=== PATIENT | male | born 1930 | race Caucasian/White ===

== ENCOUNTER 2017-05-23 22:03 | Inpatient (IN) ==
[2017-05-24] MEDS ORDERED: cefTRIAXone 1,000 MG in SODIUM CHLORIDE 0.9% 100 ML IV STA (00:10)
[2017-05-24] MEDS ORDERED: ALBUTEROL/IPRATROPIUM 3 ML NEB RESP TX STA (00:10)
[2017-05-24 00:53] LABS: Basophils % 0.6 % (0.0-0.8); Eosinophils # 0.1 10*3/uL (0.0-0.87); Eosinophils % 1.7 % (0.00-10.9); Hematocrit 39.5 VOL% (42.0-52.0); Hemoglobin 12.9 GM/DL (14.0-18.0); Immature Granulocytes % 0.6 %; Immature Granulocytes Absolute 0.04 #; Lymphocytes # 0.8 10*3/uL (1.4-4.0); Lymphocytes % 11.7 % (21.2-54.2); Mean Corpuscular HGB Conc 32.7 GM/DL (32-36); Mean Corpuscular Hemoglobin 28 PG (27-34); Mean Corpuscular Volume 85.3 FL (87-102); Mean Platelet Volume 12.3 FL (9.6-12.0); Monocytes # 0.9 10*3/uL (0.11-0.8); Monocytes % 13.4 % (1.7-12.7); Neutrophils # 4.8 10*3/uL (1.4-7.4); Platelet Count 99 T/CUMM (130-400); Red Blood Count 4.63 MC/CUMM (3.8-5.5); Red Cell Distribution Width 14.7 % (9.3-17.3); White Blood Count 6.6 T/CUMM (4-12)
[2017-05-24 01:01] LABS: Lactic Acid 1.1 MMOL/L (0.4-2.0)
[2017-05-24] MEDS ORDERED: OSELTAMIVIR 75 MG CAPSULE PO ONE (01:02)
[2017-05-24 01:11] LABS: Albumin 3.6 G/DL (3.4-5.0); Bilirubin,Total 0.8 MG/DL (0.2-1.0); Calcium 8.3 MG/DL (8.5-10.1); Osmolality,Calculated 273.8 MOS/KG (273-304); Potassium 4.2 MMOL/L (3.5-5.1); Total Protein 6.2 G/DL (6.4-8.3)
[2017-05-24] MEDS ORDERED: cefTRIAXone 1,000 MG VIAL ONE (01:28)
[2017-05-24] MEDS ORDERED: OSELTAMIVIR 75 MG CAPSULE ONE (01:29)
[2017-05-24] MEDS ORDERED: SODIUM CHLORIDE 0.9% 100 ML IV ONE (01:29)
[2017-05-24 01:57] LABS: Apearance,Urine CLEAR (Clear); Bilirubin,Urine Negative (Negative); Blood, Urine Negative (Negative); Glucose,Urine (UA) Negative (Negative); Ketones,Urine Negative (Negative); Mucus,Urine Occasional /LPF (Occasional); Nitrite,Urine Negative (Negative); Protein,Urine Negative; RBC,Urine 1 /HPF (0-4); Urine Color Yellow (Yellow); Urine Specific Gravity 1.013 (1.001-1.035); Urine Urobilinogen < 2.0 EU/DL (0.2-1.0); WBC,Urine 1 /HPF (0-6)
[2017-05-24] MEDS ORDERED: cefTRIAXone 1,000 MG in SYRINGE 1 EACH IV SCH (03:31)
[2017-05-24] MEDS ORDERED: ZALEPLON 5 MG CAPSULE PO PRN (03:31)
[2017-05-24] MEDS ORDERED: ALBUTEROL/IPRATROPIUM 3 ML NEB RESP TX PRN (03:31)
[2017-05-24] MEDS ORDERED: ONDANSETRON 4 MG/2 ML VIAL IV PRN (03:31)
[2017-05-24] MEDS ORDERED: MELOXICAM 7.5 MG TABLET PO PRN (03:31)
[2017-05-24] MEDS ORDERED: ACETAMINOPHEN 325 MG TABLET PO PRN (03:31)
[2017-05-24] MEDS: methylPREDNISolone SOD SUC 40 MG/1 ML VIAL IV SCH ×3 (04:20→20:59)
[2017-05-24] MEDS: AZITHROMYCIN INJ 500 MG in SODIUM CHLORIDE 0.9% 250 ML IV SCH (04:21)
[2017-05-24] MEDS: SODIUM CHLORIDE 0.9% 1,000 ML IV SCH (04:21)
[2017-05-24 06:04] LABS: Basophils % 0.4 % (0.0-0.8); Eosinophils # 0.1 10*3/uL (0.0-0.87); Eosinophils % 1.6 % (0.00-10.9); Hematocrit 37.7 VOL% (42.0-52.0); Hemoglobin 12.5 GM/DL (14.0-18.0); Immature Granulocytes % 1.1 %; Immature Granulocytes Absolute 0.06 #; Lymphocytes # 0.8 10*3/uL (1.4-4.0); Lymphocytes % 14.4 % (21.2-54.2); Mean Corpuscular HGB Conc 33.2 GM/DL (32-36); Mean Corpuscular Hemoglobin 28 PG (27-34); Mean Corpuscular Volume 84.7 FL (87-102); Mean Platelet Volume 12.4 FL (9.6-12.0); Monocytes # 0.8 10*3/uL (0.11-0.8); Monocytes % 13.8 % (1.7-12.7); Neutrophils # 3.8 10*3/uL (1.4-7.4); Neutrophils % 68.7 % (38.7-73.9); Platelet Count 92 T/CUMM (130-400); Red Blood Count 4.45 MC/CUMM (3.8-5.5); Red Cell Distribution Width 14.9 % (9.3-17.3); White Blood Count 5.6 T/CUMM (4-12)
[2017-05-24 06:29] LABS: Giant Platelets Few; Platelet Estimate Adequate
[2017-05-24 06:30] LABS: Hypochromasia 1+
[2017-05-24 06:33] LABS: Albumin 3.4 G/DL (3.4-5.0); Calcium 8.4 MG/DL (8.5-10.1); Magnesium 2.1 MG/DL (1.8-2.4); Osmolality,Calculated 280.4 MOS/KG (273-304); Potassium 4.3 MMOL/L (3.5-5.1); Total Protein 5.4 G/DL (6.4-8.3)
[2017-05-24] MEDS: TAMSULOSIN 0.4 MG CAPSULE PO SCH ×2 (09:07→21:00)
[2017-05-24] MEDS: OSELTAMIVIR 6 MG/ML 60 ML/BOTTLE PO SCH ×2 (09:07→21:01)
[2017-05-24] MEDS: MULTIVITAMIN (CENTRUM) TABLET PO SCH (09:07)
[2017-05-24] MEDS: PANTOPRAZOLE 40 MG TABLET PO SCH (09:07)
[2017-05-24] MEDS: GLUCOSAMINE 500 MG TABLET PO SCH (09:07)
[2017-05-24] MEDS: DOCUSATE SODIUM 100 MG CAPSULE PO SCH ×2 (09:07→21:00)
[2017-05-24] MEDS ORDERED: NON-FORMULARY MEDICATION (Saccharomyces Boulardii [Probiotic] 250 MG) PO SCH (19:00)
[2017-05-25] MEDS: cefTRIAXone 1,000 MG in SYRINGE 1 EACH IV SCH (01:51)
[2017-05-25] MEDS: SODIUM CHLORIDE 0.9% 1,000 ML IV SCH (01:58)
[2017-05-25] MEDS: methylPREDNISolone SOD SUC 40 MG/1 ML VIAL IV SCH ×3 (03:46→21:04)
[2017-05-25] MEDS: AZITHROMYCIN INJ 500 MG in SODIUM CHLORIDE 0.9% 250 ML IV SCH (03:48)
[2017-05-25] MEDS: PANTOPRAZOLE 40 MG TABLET PO SCH (08:11)
[2017-05-25] MEDS: TAMSULOSIN 0.4 MG CAPSULE PO SCH ×2 (08:11→21:05)
[2017-05-25] MEDS: MULTIVITAMIN (CENTRUM) TABLET PO SCH (08:11)
[2017-05-25] MEDS: OSELTAMIVIR 6 MG/ML 60 ML/BOTTLE PO SCH (08:11)
[2017-05-25] MEDS: GLUCOSAMINE 500 MG TABLET PO SCH (08:11)
[2017-05-25] MEDS: DOCUSATE SODIUM 100 MG CAPSULE PO SCH ×2 (08:13→21:05)
[2017-05-25] MEDS: OSELTAMIVIR 75 MG CAPSULE PO SCH (21:04)
[2017-05-26] MEDS: cefTRIAXone 1,000 MG in SYRINGE 1 EACH IV SCH (01:09)
[2017-05-26] MEDS: methylPREDNISolone SOD SUC 40 MG/1 ML VIAL IV SCH ×2 (03:31→10:31)
[2017-05-26] MEDS: SODIUM CHLORIDE 0.9% 1,000 ML IV SCH (03:32)
[2017-05-26] MEDS: AZITHROMYCIN INJ 500 MG in SODIUM CHLORIDE 0.9% 250 ML IV SCH (03:33)
[2017-05-26] MEDS: GLUCOSAMINE 500 MG TABLET PO SCH (09:08)
[2017-05-26] MEDS: OSELTAMIVIR 75 MG CAPSULE PO SCH (09:08)
[2017-05-26] MEDS: PANTOPRAZOLE 40 MG TABLET PO SCH (09:08)
[2017-05-26] MEDS: TAMSULOSIN 0.4 MG CAPSULE PO SCH (09:08)
[2017-05-26] MEDS: DOCUSATE SODIUM 100 MG CAPSULE PO SCH (09:08)
[2017-05-26] MEDS: MULTIVITAMIN (CENTRUM) TABLET PO SCH (09:08)
[2017-05-26 11:31] VITALS: BP 147/75
== END 2017-05-26 13:34 | disposition home or self-care (01) | DRG 195 ==
LOC: N.ED 22:03 → N.EDINP 05-24 01:39 → N.5E 05-24 02:15
PROVIDERS: ADMIT Family Medicine; ATTEND Family Medicine

== ENCOUNTER 2019-08-12 12:10 | Observation (INO) ==
[2019-08-12] MEDS ORDERED: ONDANSETRON 4 MG/2 ML VIAL IV STA (12:46)
[2019-08-12 12:54] LABS: Basophils # 0.1 10*3/uL (0.0-0.2); Basophils % 0.5 % (0.0-0.8); Eosinophils # 0.4 10*3/uL (0.0-0.87); Eosinophils % 3.6 % (0.00-10.9); Hematocrit 37.7 VOL% (42.0-52.0); Hemoglobin 12.2 GM/DL (14.0-18.0); Immature Granulocytes % 0.9 %; Immature Granulocytes Absolute 0.09 #; Lymphocytes # 1.1 10*3/uL (1.4-4.0); Lymphocytes % 11.2 % (21.2-54.2); Mean Corpuscular HGB Conc 32.4 GM/DL (32-36); Mean Corpuscular Volume 85.3 FL (87-102); Mean Platelet Volume 9.9 FL (9.6-12.0); Monocytes % 8.1 % (1.7-12.7); Neutrophils % 75.7 % (38.7-73.9); Platelet Count 196 T/CUMM (130-400); Red Blood Count 4.42 MC/CUMM (3.8-5.5); Red Cell Distribution Width 14.1 % (9.3-17.3)
[2019-08-12 13:15] LABS: Albumin 3.3 G/DL (3.4-5.0); Bilirubin,Total 0.6 MG/DL (0.2-1.0); Osmolality,Calculated 270.1 MOS/KG (273-304); Total Protein 7.5 G/DL (6.4-8.3)
[2019-08-12 15:03] LABS: Apearance,Urine CLEAR (Clear); Bilirubin,Urine Negative (Negative); Blood, Urine Negative (Negative); Glucose,Urine (UA) Negative (Negative); Hyaline Casts,Urine 5 /LPF (0-3); Ketones,Urine 5 mg/dL (Negative); Mucus,Urine Occasional /LPF (Occasional); Nitrite,Urine Negative (Negative); Protein,Urine Negative; RBC,Urine 1 /HPF (0-4); Squamous Epithelial Cell,Urine Occasional /HPF (0-10); Urine Color Yellow (Yellow); Urine Specific Gravity 1.011 (1.001-1.035); Urine Urobilinogen < 2.0 EU/DL (0.2-1.0); WBC,Urine 1 /HPF (0-6)
[2019-08-12] MEDS ORDERED: ONDANSETRON 4 MG/2 ML VIAL IV PRN (17:10)
[2019-08-12] MEDS ORDERED: PIPERACILLIN/TAZOBACTAM 4,500 MG in SODIUM CHLORIDE 0.9% 100 ML IV SCH (17:30)
[2019-08-12] MEDS ORDERED: PIPERACILLIN/TAZOBACTAM 4,500 MG VIAL IV ONE (18:26)
[2019-08-12] MEDS: LACTATED RINGERS 1,000 ML IV SCH (19:17)
[2019-08-12] MEDS: fentaNYL 100 MCG/2 ML VIAL IV PRN (22:35)
[2019-08-13] MEDS: PIPERACILLIN/TAZOBACTAM 3,375 MG in SODIUM CHLORIDE 0.9% 100 ML IV SCH ×3 (02:50→18:25)
[2019-08-13] MEDS: fentaNYL 100 MCG/2 ML VIAL IV PRN (02:56)
[2019-08-13] MEDS ORDERED: LIDOCAINE 1%/EPI INJ 20 ML VIAL ONE (06:48)
[2019-08-13] MEDS ORDERED: BUPIVACAINE MPF 0.25% 30 ML VIAL ONE (06:48)
[2019-08-13] MEDS ORDERED: ceFAZolin 1,000 MG in SYRINGE 1 EACH IV ONE (07:04)
[2019-08-13] MEDS ORDERED: TISSUE ADHESIVE 1 EACH APPLICATOR TOP ONE (08:39)
[2019-08-13] MEDS ORDERED: fentaNYL 100 MCG/2 ML VIAL ONE (09:37)
[2019-08-13] MEDS ORDERED: propofoL 200 MG/20 ML VIAL IV ONE (09:37)
[2019-08-13] MEDS ORDERED: SEVOFLURANE 1 UNIT/15 MINUTE INH ONE (09:37)
[2019-08-13] MEDS ORDERED: LIDOCAINE 2% 5 ML VIAL ONE (09:37)
[2019-08-13] MEDS ORDERED: ePHEDrine 50 MG/ML AMP ONE (09:37)
[2019-08-13] MEDS ORDERED: ONDANSETRON 4 MG/2 ML VIAL ONE (09:38)
[2019-08-13] MEDS ORDERED: SUCCINYLCHOLINE 200 MG/10 ML VIAL ONE (09:38)
[2019-08-13] MEDS ORDERED: DEXAMETHASONE 4 MG/1 ML VIAL ONE (09:38)
[2019-08-13] MEDS ORDERED: ROCURONIUM 100 MG/10 ML VIAL IV ONE (09:38)
[2019-08-13] MEDS ORDERED: ETOMIDATE 40 MG/20 ML VIAL IV ONE (09:38)
[2019-08-13] MEDS ORDERED: LACTATED RINGERS 1,000 ML IV ONE (09:38)
[2019-08-13] MEDS ORDERED: GLYCOPYRROLATE 0.4 MG/2 ML VIAL ONE (09:38)
[2019-08-13] MEDS ORDERED: PHENYLEPHRINE 1 MG/10 ML SYRINGE IV ONE (09:38)
[2019-08-13] MEDS ORDERED: NEOSTIGMINE 10 MG/10 ML VIAL ONE (09:38)
[2019-08-13] MEDS ORDERED: TAMSULOSIN 0.4 MG CAPSULE PO SCH (15:31)
[2019-08-13] MEDS: FINASTERIDE 5 MG TABLET PO SCH (15:41)
[2019-08-13] MEDS: POLYETHYLENE GLYCOL POWDER 17 GM PACK PO SCH (21:18)
[2019-08-13] MEDS: TAMSULOSIN 0.4 MG CAPSULE PO SCH (21:18)
[2019-08-14] MEDS: PIPERACILLIN/TAZOBACTAM 3,375 MG in SODIUM CHLORIDE 0.9% 100 ML IV SCH ×2 (01:19→10:49)
[2019-08-14 07:33] VITALS: BP 97/51
[2019-08-14] MEDS: LACTATED RINGERS 1,000 ML IV SCH ×2 (08:33→10:48)
[2019-08-14] MEDS: POLYETHYLENE GLYCOL POWDER 17 GM PACK PO SCH (09:23)
[2019-08-14] MEDS: FINASTERIDE 5 MG TABLET PO SCH (09:23)
[2019-08-14] MEDS: TAMSULOSIN 0.4 MG CAPSULE PO SCH (09:23)
== END 2019-08-14 10:17 | disposition home or self-care (01) ==
LOC: N.ED 12:10 → N.EDINP 12:10 → N.3E 18:52
PROVIDERS: ADMIT Student in an Organized Health Care Education/Training Program; ATTEND Student in an Organized Health Care Education/Training Program
PROC: LAPCHOL (2019-08-13 07:55)